=== PATIENT | female | born 1990 | race Caucasian/White ===

== ENCOUNTER 2018-05-21 18:50 | Observation (INO) | payer MEDICAID ==
[~2018-05-21] VITALS: Ht 162.6 cm; Wt 68.9 kg
== END 2018-05-21 20:45 | disposition home or self-care (01) ==
LOC: SPU 18:50
PROVIDERS: ADMIT Obstetrics & Gynecology; ATTEND Obstetrics & Gynecology
DX: O26.893 Other specified pregnancy related conditions, third trimester (principal); O99.013 Anemia complicating pregnancy, third trimester; R10.9 Unspecified abdominal pain; M54.9 Dorsalgia, unspecified; D63.8 Anemia in other chronic diseases classified elsewhere; Z3A.38 38 weeks gestation of pregnancy
CPT/HCPCS: 81002; G0378

== ENCOUNTER 2019-01-17 17:13 | Emergency (ER) | payer MEDICAID ==
[~2019-01-17] VITALS: Ht 162.6 cm; Wt 60.3 kg
[2019-01-17 17:22] VITALS: BP_SYST 104
[2019-01-17 18:35] LABS: BASOPHILS % (AUTO) 0.6 % (0.0-2.0); EOSINOPHILS % (AUTO) 0.7 % (0.0-4.0); HEMATOCRIT 30.3 % (36-48); HEMOGLOBIN 9.3 g/dL (12.0-16.0); LYMPHOCYTES # (AUTO) 1.9 K/uL (1.0-5.5); LYMPHOCYTES % (AUTO) 32.3 % (20.5-51.5); MEAN CORPUSCULAR HEMOGLOBIN 23 pg (27-31); MEAN CORPUSCULAR HGB CONC 31 % (32-36); MEAN CORPUSCULAR VOLUME 73 fL (79.0-98.0); MONOCYTES # (AUTO) 0.4 K/uL (0.0-1.0); MONOCYTES % (AUTO) 7.1 % (1.7-9.3); NEUTROPHILS # (AUTO) 3.4 K/uL (1.8-7.7); NEUTROPHILS % (AUTO) 59.3 % (40.0-70.0); PLATELET COUNT (AUTO) 301 K/uL (130-430); RED BLOOD CELL COUNT(AUTO) 4.14 MIL/uL (4.2-6.2); RED CELL DISTRIBUTION WIDTH 17.7 % (9.0-15.0); WHITE BLOOD COUNT (AUTO) 5.8 K/uL (4.8-10.8)
[2019-01-17 18:46] LABS: CALCIUM 8.9 mg/dL (8.4-11.0); CREATININE 0.73 mg/dL (0.55-1.30); POTASSIUM 4.1 mmol/L (3.5-5.1)
[2019-01-17 18:51] LABS: BILIRUBIN,URINE NEGATIVE (NEGATIVE); BLOOD, URINE NEGATIVE (NEGATIVE); CLARITY/URINE CLEAR (CLEAR); COLOR,URINE YELLOW (YELLOW); GLUCOSE,URINE NEGATIVE (NEGATIVE); KETONES,URINE NEGATIVE (NEGATIVE); LEUKOCYTE ESTERASE ,URINE NEGATIVE (NEGATIVE); NITRITE, URINE NEGATIVE (NEGATIVE); PROTEIN URINE NEGATIVE (NEGATIVE); UROBILINOGEN,URINE 0.2 (0.2-1.0)
[2019-01-17 18:57] LABS: ALBUMIN 3.8 g/dL (3.4-4.8); TOTAL BILIRUBIN 0.2 mg/dL (0.0-1.0)
[2019-01-17] MEDS ORDERED: RHO(D) IMMUNE GLOBULIN/MALTOSE 1500 UNITS/1.3 ML (WINHRO) INJ ONE (20:30)
--- NOTE | 2019-01-17 20:30 | NUR ---
Patient to ER bed 07 to gown for evaluation. Side rails up.
--- NOTE | 2019-01-17 20:32 | NUR ---
Pt brought by self, A&Ox4, pt states she is , pt presents to ER with vaginal bleeding x 19 days which is varrying red-brown scant, pt denies pain, skin pink and warm, cap refill <3, VSS, respirations even and unlabored.
--- NOTE | 2019-01-17 21:10 | NUR ---
Pt on stable condition, VSS, mild vaginal spotting , ambulatory.
--- NOTE | 2019-01-17 21:15 | NUR ---
Dr Trinidad at bedside examining patient
--- NOTE | 2019-01-17 22:14 | NUR ---
Pt refused Rhogam, ER aware
[2019-01-17 22:30] VITALS: BP_SYST 116
--- NOTE | 2019-01-17 22:30 | NUR ---
Patient given written and verbal discharge instructions and verbalizes understanding. ER MD discussed with patient the results and treatment provided. Patient in stable condition. ID arm band removed. No Rx given. Patient educated on pain management and to follow up with PMD. Pain Scale 0/10 . Opportunity for questions provided and answered. Medication side effect fact sheet provided.
== END 2019-01-17 22:30 | disposition home or self-care (01) ==
LOC: SED 17:13
DX: O20.0 Threatened abortion (principal); R03.0 Elevated blood-pressure reading, without diagnosis of hypertension; Z3A.10 10 weeks gestation of pregnancy
CPT/HCPCS: 36415; 76801; 76817; 80053; 81003; 81025; 84702-TC; 85025; 86900; 86901; 99284; J2792